=== PATIENT | female | born 1980 | race Caucasian/White ===

== ENCOUNTER 2017-10-14 23:28 | Inpatient (IN) | payer MEDICAID ==
[2017-10-15] MEDS ORDERED: BUTORPHANOL 2 MG INJ IV (01:30)
[2017-10-15] MEDS ORDERED: METHYLERGONOVINE 0.2 MG INJ IM ×2 (01:30→10:00)
[2017-10-15] MEDS ORDERED: CARBOPROST 250 MCG INJ IM ×2 (01:30→10:00)
[2017-10-15] MEDS ORDERED: LIDOCAINE 1% (MPF) 30 ML INJ INJ (01:30)
[2017-10-15] MEDS ORDERED: LACTATED RINGER'S 1,000 ML IV (01:30)
[2017-10-15] MEDS ORDERED: MISOPROSTOL 200 MCG TAB PR ×2 (01:30→10:00)
[2017-10-15] MEDS ORDERED: OXYTOCIN 30 UNITS/LR 500 ML IV ×3 (01:30→10:00)
[2017-10-15] MEDS: LACTATED RINGER'S 1,000 ML IV ×2 (02:02→02:48)
[2017-10-15 02:18] LABS: ADD MAN DIFF? NO
[2017-10-15 02:20] LABS: BASOPHILS % 0.4 % (0.0-2.0); EOSINOPHILS # 0.1 10^3/ul (0.0-0.5); EOSINOPHILS % 0.9 % (0.0-7.0); HEMATOCRIT 36.9 % (37.0-47.0); HEMOGLOBIN 12.1 g/dl (12.0-16.0); LYMPHOCYTES # 3.1 10^3/ul (0.8-2.9); LYMPHOCYTES % 27.7 % (15.0-51.0); MEAN CORPUSCULAR HEMOGLOBIN 28.8 pg (29.0-33.0); MEAN CORPUSCULAR HGB CONC 32.8 g/dl (32.0-37.0); MEAN CORPUSCULAR VOLUME 87.9 fl (82.0-101.0); MEAN PLATELET VOLUME 9.8 fl (7.4-10.4); MONOCYTE # 0.6 10^3/ul (0.3-0.9); MONOCYTES % 5.5 % (0.0-11.0); NEUTROPHIL # 7.3 10^3/ul (1.6-7.5); NEUTROPHILS % 64.9 % (39.0-77.0); PLATELET COUNT 311 10^3/UL (140-415); RED CELL DISTRIBUTION WIDTH 13.5 % (11.5-14.5)
[2017-10-15 02:20] LABS: WHITE BLOOD COUNT 11.2 10^3/ul (4.8-10.8)
[2017-10-15 02:34] LABS: PROTIME 13.3 Sec (11.9-14.9)
[2017-10-15 02:35] LABS: PARTIAL THROMBOPLASTIN TIME 26.8 Sec (25.0-35.0)
[2017-10-15] MEDS ORDERED: FENTAnyl 2MCG/ML-ROPIV 0.2% 100 ML (03:15)
[2017-10-15] MEDS ORDERED: NALOXONE (0.4 MG/ML) INJ IV (03:30)
[2017-10-15] MEDS ORDERED: KETOROLAC 30 MG INJ IV (03:30)
[2017-10-15] MEDS ORDERED: HYDROmorphONE 0.5 MG/0.5 ML SYG IV ×2 (03:30)
[2017-10-15] MEDS ORDERED: FENTAnyl 2MCG/ML-ROPIV 0.2% 100 ML BAG EPI (03:30)
[2017-10-15] MEDS ORDERED: DIPHENHYDRAMINE 50 MG INJ IV (03:30)
[2017-10-15] MEDS ORDERED: ONDANSETRON 4 MG INJ IV (03:30)
[2017-10-15 05:11] LABS: HEPATITIS B SURFACE ANTIGEN NEGATIVE (NEGATIVE)
[2017-10-15] MEDS: OXYTOCIN 30 UNITS/LR 500 ML IV ×5 (07:32→17:50)
[2017-10-15] MEDS ORDERED: OXYCODONE/ASPIRIN (4.88/325) TAB PO (10:00)
[2017-10-15] MEDS ORDERED: ACETAMINOPHEN 500 MG TAB PO (10:00)
[2017-10-15] MEDS ORDERED: WITCH HAZEL/GLYCERIN PAD PR (10:00)
[2017-10-15] MEDS ORDERED: BENZOCAINE 20% 56 ML SPRAY TOP (10:00)
[2017-10-15] MEDS ORDERED: DIBUCAINE 1% 30 GM OINT PR (10:00)
[2017-10-15] MEDS ORDERED: SENNA/DOCUSATE NA (8.6MG/50MG) TAB PO (10:00)
[2017-10-15] MEDS: IBUPROFEN 600 MG TAB PO (12:07)
[2017-10-15] MEDS: LANOLIN 7 GM TUBE TOP (12:07)
[2017-10-15 19:21] LABS: RAPID PLASMA REAGIN NONREACTIVE (NR)
[2017-10-16] MEDS: OXYCODONE/ASPIRIN (4.88/325) TAB PO (02:48)
[2017-10-16 10:10] LABS: ADD MAN DIFF? NO
[2017-10-16 10:14] LABS: BASOPHIL # 0.1 10^3/ul (0.0-0.1); BASOPHILS % 0.6 % (0.0-2.0); EOSINOPHILS # 0.3 10^3/ul (0.0-0.5); EOSINOPHILS % 2.6 % (0.0-7.0); HEMOGLOBIN 10.5 g/dl (12.0-16.0); LYMPHOCYTES # 2.6 10^3/ul (0.8-2.9); LYMPHOCYTES % 23.3 % (15.0-51.0); MEAN CORPUSCULAR HEMOGLOBIN 29.7 pg (29.0-33.0); MEAN CORPUSCULAR HGB CONC 33.9 g/dl (32.0-37.0); MEAN CORPUSCULAR VOLUME 87.6 fl (82.0-101.0); MEAN PLATELET VOLUME 10.1 fl (7.4-10.4); MONOCYTE # 0.7 10^3/ul (0.3-0.9); MONOCYTES % 6.2 % (0.0-11.0); NEUTROPHIL # 7.5 10^3/ul (1.6-7.5); NEUTROPHILS % 66.7 % (39.0-77.0); PLATELET COUNT 256 10^3/UL (140-415); RED BLOOD COUNT 3.54 10^6/ul (4.20-5.40); RED CELL DISTRIBUTION WIDTH 13.7 % (11.5-14.5)
[2017-10-16 10:14] LABS: WHITE BLOOD COUNT 11.3 10^3/ul (4.8-10.8)
[2017-10-16] MEDS: IBUPROFEN 600 MG TAB PO (20:08)
[2017-10-17] MEDS: DIPHTH/TET/ACEL PERTUSS (ADULT) 0.5 ML VIAL IM* (09:00)
[2017-10-17] MEDS: IBUPROFEN 600 MG TAB PO (12:07)
== END 2017-10-17 14:53 | disposition home or self-care (01) | DRG 775 ==
LOC: OBT 23:28 → L-D 23:28 → PP1 10-15 09:16
PROVIDERS: Obstetrics & Gynecology
PROC: 10E0XZZ Delivery of Products of Conception, External Approach (ICD-10-PCS; principal; 2017-10-15)
DX: O80 Encounter for full-term uncomplicated delivery (principal); Z37.0 Single live birth; Z3A.39 39 weeks gestation of pregnancy
CPT/HCPCS: 62319; 85025; 85610; 85730; 86592; 86850; 86900; 86901; 87340; 99464